=== PATIENT | female | born 1940 | race African-American/Black ===

== ENCOUNTER → 2017-05-24 | Day surgery (SDC) | payer OTHER ==
[~2017-05-24] MED LIST: IV RINGERS SOLUTION,LACTATED 1,000 ML IV ONE; LIDOCAINE 2% PF Vial for OR 5 ML VIAL. ONE; PROPOFOL 20 ML IV ONE
== END | disposition home or self-care (01) ==
LOC: SURG 11:49
PROVIDERS: ATTEND Internal Medicine Gastroenterology
DX: K22.2 Esophageal obstruction (principal); K44.9 Diaphragmatic hernia without obstruction or gangrene; K26.9 Duodenal ulcer, unspecified as acute or chronic, without hemorrhage or perforation; E03.9 Hypothyroidism, unspecified; Z98.890 Other specified postprocedural states
CPT/HCPCS: 43239; 43249; J2704; J7120; J2001

== ENCOUNTER → 2017-08-16 | Day surgery (SDC) | payer OTHER ==
[~2017-08-16] MED LIST changes: +ACET500T33 PO; +OMEP40CA5 PO
[2017-08-16 14:20] VITALS: BP 151/81
== END | disposition home or self-care (01) ==
LOC: SURG 10:45
PROVIDERS: ATTEND Internal Medicine Gastroenterology
DX: R13.10 Dysphagia, unspecified (principal); K44.9 Diaphragmatic hernia without obstruction or gangrene
CPT/HCPCS: 43239; 43450; J2704; J7120; 43235; J2001

== ENCOUNTER 2018-08-30 18:19 | Inpatient (IN) | payer OTHER ==
[~2018-08-30] VITALS: Ht 167.6 cm; Wt 82.6 kg
[~2018-08-30 18:19] MED LIST changes: -IV RINGERS SOLUTION,LACTATED 1,000 ML IV ONE; -LIDOCAINE 2% PF Vial for OR 5 ML VIAL. ONE; -PROPOFOL 20 ML IV ONE
[2018-08-30 18:46] VITALS: BP 159/80
[2018-08-30] MEDS ORDERED: traMADol 50 MG TABLET PO PRN (19:30)
[2018-08-30] MEDS ORDERED: IV NORMAL SALINE 50 ML BAG IV SCH (19:30)
[2018-08-30] MEDS ORDERED: ZOLPIDEM 5 MG TABLET. PO PRN ×2 (19:30)
[2018-08-30] MEDS: IV NORMAL SALINE 1,000ML 1,000 ML IV SCH (19:55)
[2018-08-30 20:34] LABS: BASO # 0.1 x10^3/uL (0.0-0.2); BASO % 1 % (0-3); EOS % 0 % (0-3); HEMATOCRIT 37.2 % (36.0-47.0); HEMOGLOBIN 12.2 g/dL (12.0-15.5); LYMPH # 1.4 x10^3/uL (1.0-4.8); LYMPH % 29 % (24-48); MEAN CORPUSCULAR HEMOGLOBIN 29 pg (25-35); MEAN CORPUSCULAR HGB CONC 33 g/dL (31-37); MEAN CORPUSCULAR VOLUME 88 fL (79-100); MONO # 0.5 x10^3/uL (0.0-1.1); MONO % 11 % (0-9); NEUT # 2.7 x10^3uL (1.8-7.7); NEUT % 59 % (31-73); PLATELET COUNT 248 x10^3/uL (140-400); RED BLOOD COUNT 4.24 x10^6/uL (3.50-5.40); RED CELL DISTRIBUTION WIDTH 14.6 % (11.5-14.5); WHITE BLOOD COUNT 4.7 x10^3/uL (4.0-11.0)
[2018-08-30 20:43] LABS: ALBUMIN 3.4 g/dL (3.4-5.0); ALBUMIN/GLOBULIN RATIO 0.8 (1.0-1.7); CALCIUM 9.4 mg/dL (8.5-10.1); CREATININE 1.3 mg/dL (0.6-1.0); GFR 47.7; POTASSIUM 3.6 mmol/L (3.5-5.1); TOTAL BILIRUBIN 1.4 mg/dL (0.2-1.0); TOTAL PROTEIN 7.6 g/dL (6.4-8.2)
[2018-08-30] MEDS: ONDANSETRON ODT 4 MG TAB.RAPDIS PO PRN (20:47)
[2018-08-30] MEDS ORDERED: METO25TA4 (21:43)
[2018-08-30] MEDS ORDERED: APIX5TAB3 (21:43)
[2018-08-30] MEDS ORDERED: ISOS30TA4 (21:43)
[2018-08-30 22:50] VITALS: BP 126/65
[2018-08-31 04:48] VITALS: BP 119/67
[2018-08-31] MEDS: ISOSORBIDE MONONITRATE ER 30 MG TAB.ER.24H PO SCH (08:54)
[2018-08-31] MEDS: ONDANSETRON ODT 4 MG TAB.RAPDIS PO PRN (08:54)
[2018-08-31] MEDS: APIXABAN 5 MG TABLET. PO SCH ×2 (08:54→20:55)
[2018-08-31] MEDS: METOPROLOL TART IMMED RELEASE 25 MG TABLET PO SCH (08:54)
[2018-08-31] MEDS: LACTOBACILLUS RHAMNOSUS GG 1 CAPSULE. PO SCH ×2 (08:54→20:55)
[2018-08-31] MEDS: PANTOPRAZOLE 40 MG TABLET. PO SCH (08:54)
[2018-08-31 11:07] VITALS: BP 101/56
[2018-08-31] MEDS ORDERED: BARIUM SULFATE 0.1% 450 ML SUSP PO ONE (12:30)
[2018-08-31 12:34] LABS: BACTERIA,URINE FEW /HPF (0-FEW); BILIRUBIN,URINE NEG (NEG); CLARITY,URINE HAZY; COLOR,URINE YELLOW; GLUCOSE,URINE NEG (NEG); NITRITE,URINE POS (NEG); SQUAMOUS EPITHELIAL CELL,UR FEW /LPF; UROBILINOGEN,URINE 0.2 mg/dL (0.2 mg/dL); WBC,URINE >40 /HPF (0-4)
--- NOTE | 2018-08-31 15:26 | RAD ---
EXAM: CT ABDOMEN/PELVIS WITHOUT CONTRAST. HISTORY: Right upper quadrant pain. TECHNIQUE: Computed tomography of the abdomen and pelvis was performed without intravenous contrast. COMPARISON: None. FINDINGS: Lung windows through the visualized portions of the bases reveal trace bilateral pleural effusions and associated atelectasis. There is a moderate hiatal hernia. Bone windows reveal no suspicious lesions. The gallbladder is surgically absent. The liver, spleen, adrenal glands, pancreas and pancreas are unremarkable without contrast. Mild right hydroureter and periureteral stranding are suspected. There are no renal or ureteral calculi. There are no pathologically enlarged lymph nodes. Left colonic diverticulosis is mild. The appendix is not inflamed. There is no small bowel obstruction. The left colon is decompressed but there is suggestion of mild wall thickening. IMPRESSION: 1. Mild right hydroureter and periureteral stranding. Correlate with urinalysis to exclude ascending infection or recent passage of a stone. 2. Mild left colonic wall thickening may reflect only luminal decompression. Correlate to exclude colitis. 3. Moderate hiatal hernia. 4. Trace bilateral pleural effusions. *One or more of the following individualized dose reduction techniques were utilized for this examination: 1. Automated exposure control. 2. Adjustment of the mA and/or kV according to patient size. 3. Use of iterative reconstruction technique. Electronically signed by: Shabbir Ledezma MD (08/31/2018 3:23 PM) [facility] [place]
[2018-08-31 15:43] VITALS: BP 114/66
[2018-08-31] MEDS: IV NORMAL SALINE 1,000ML 1,000 ML IV SCH (16:00)
[2018-08-31 19:10] VITALS: BP 116/82
--- NOTE | 2018-08-31 22:34 | PN ---
DATE: SUBJECTIVE: The patient admitted with pyelonephritis, had temperature of 102.9, elevated pulse. The patient has been treated as an outpatient and failed all that. She is feeling better this morning. She is receiving IV antibiotic therapy. PHYSICAL EXAMINATION: VITAL SIGNS: The patient's temperature down to 99.1, respiratory rate 20, blood pressure 120/70, 86. HEENT: The patient's head was atraumatic, normocephalic. Eyes: PERRLA without jaundice. Mouth and throat were normal. NECK: Supple, no JVD or thyromegaly. LUNGS: Diminished, but clear. ABDOMEN: Soft, diffuse tenderness in the abdomen. May go ahead and get her CT abdomen and pelvis, as she is having pain in her right flank area. Otherwise, she continues to make good progress and we will continue to monitor her accordingly. Continue on IV antibiotic. She is on Eliquis. IMPRESSION: Pyelonephritis abdominal pain. Continue as such. LALO FIGUEROA MD DR: SHARA/dimitri JOB#: [id number] / [id number]
[2018-08-31 22:52] VITALS: BP 111/60
[2018-09-01 00:08] LABS: HEMOGLOBIN A1C 5.2 % (4.8-5.6)
[2018-09-01 05:05] VITALS: BP 142/74
[2018-09-01] MEDS: PANTOPRAZOLE 40 MG TABLET. PO SCH (09:28)
[2018-09-01] MEDS: ISOSORBIDE MONONITRATE ER 30 MG TAB.ER.24H PO SCH (09:29)
[2018-09-01] MEDS: LACTOBACILLUS RHAMNOSUS GG 1 CAPSULE. PO SCH ×2 (09:29→21:40)
[2018-09-01] MEDS: APIXABAN 5 MG TABLET. PO SCH ×2 (09:29→21:40)
[2018-09-01] MEDS: METOPROLOL TART IMMED RELEASE 25 MG TABLET PO SCH (09:30)
[2018-09-01 11:05] VITALS: BP 129/63
[2018-09-01] MEDS ORDERED: BISACODYL 10 MG SUPP.RECT PR ONE (16:15)
--- NOTE | 2018-09-01 17:15 | PN ---
DATE: SUBJECTIVE: The patient with pyelonephritis and colitis. She is doing somewhat better, still receiving IV antibiotic therapy; however, the patient is still having some abdominal pain, but markedly improved from where she was. OBJECTIVE: VITAL SIGNS: Blood pressure 130/60, respiratory rate 20, pulse 60, afebrile. GENERAL: The patient is alert and oriented. LUNGS: Diminished, but clear. CARDIOVASCULAR: Stable. The patient is still complaining of right flank pain. CT scan shows some type of abnormality there. In any case, the patient's blood sugar slightly elevated at 163. She continues to be monitored carefully. She had greater than 40 white blood cells per high powered field and urine cultures are still pending. The patient continues to make good progress. IMPRESSION: Pyelonephritis of the right kidney as well as that of colitis of the colon. LALO FIGUEROA MD DR: SHARA/dimitri JOB#: [id number] / [id number]
[2018-09-01] MEDS ORDERED: NITROGLYCERIN SUBLINGUAL 0.4 MG BOTTLE OF 25. SL PRN (18:45)
[2018-09-01] MEDS: IPRATRPIUM/ALBUTEROL 0.5/2.5MG 3 ML NEBU. NEB PRN (19:22)
[2018-09-01 20:09] VITALS: BP 153/71
[2018-09-01 23:23] VITALS: BP 129/70
[2018-09-02] MEDS: DOCUSATE SODIUM 100 MG CAPSULE PO PRN ×2 (01:00→20:47)
[2018-09-02] MEDS ORDERED: BISACODYL 10 MG/30 ML ENEMA PR PRN (01:30)
[2018-09-02] MEDS ORDERED: SODIUM PHOSPHATES 19/7GM 133 ML ENEMA. PR ONE (03:00)
[2018-09-02] MEDS: IPRATRPIUM/ALBUTEROL 0.5/2.5MG 3 ML NEBU. NEB PRN (06:03)
[2018-09-02 06:25] VITALS: BP 148/78
[2018-09-02] MEDS: ISOSORBIDE MONONITRATE ER 30 MG TAB.ER.24H PO SCH (09:05)
[2018-09-02] MEDS: APIXABAN 5 MG TABLET. PO SCH ×2 (09:05→20:48)
[2018-09-02] MEDS: LACTOBACILLUS RHAMNOSUS GG 1 CAPSULE. PO SCH ×2 (09:05→20:47)
[2018-09-02] MEDS: PANTOPRAZOLE 40 MG TABLET. PO SCH (09:06)
[2018-09-02] MEDS: METOPROLOL TART IMMED RELEASE 25 MG TABLET PO SCH (09:06)
[2018-09-02 10:18] VITALS: BP 164/75
[2018-09-02 14:27] VITALS: BP 128/71
[2018-09-02 19:50] VITALS: BP 145/69
--- NOTE | 2018-09-03 03:26 | PN ---
DATE: 09/02/2018 SUBJECTIVE: The patient was admitted with pyelonephritis and colitis. The patient is resting fairly comfortably, making fairly good progress. The patient otherwise continues to receive IV antibiotic therapy. Waiting for culture and sensitivity reports back from [place] where she had been initially seen. PHYSICAL EXAMINATION: VITAL SIGNS: Blood pressure 128/70, respiratory rate 22. Slight temperature of 99.1. GENERAL: The patient is alert and oriented. LUNGS: Diminished. CARDIOVASCULAR: Regular sinus rhythm. ABDOMEN: Soft, nontender. EXTREMITIES: No clubbing, cyanosis or edema. NEUROLOGIC: Intact, baseline for her. IMPRESSION: Pyelonephritis of the right kidney as well as colitis of the colon. LALO FIGUEROA MD DR: SHARA/nts JOB#: [id number] / [id number]
[2018-09-03 05:33] VITALS: BP 169/87
[2018-09-03] MEDS: ONDANSETRON ODT 4 MG TAB.RAPDIS PO PRN (06:31)
[2018-09-03] MEDS: APIXABAN 5 MG TABLET. PO SCH ×2 (09:01→21:39)
[2018-09-03] MEDS: DOCUSATE SODIUM 100 MG CAPSULE PO PRN (09:02)
[2018-09-03] MEDS: ISOSORBIDE MONONITRATE ER 30 MG TAB.ER.24H PO SCH (09:02)
[2018-09-03] MEDS: PANTOPRAZOLE 40 MG TABLET. PO SCH (09:03)
[2018-09-03] MEDS: LACTOBACILLUS RHAMNOSUS GG 1 CAPSULE. PO SCH ×2 (09:03→21:39)
[2018-09-03] MEDS: METOPROLOL TART IMMED RELEASE 25 MG TABLET PO SCH (09:03)
[2018-09-03 10:54] VITALS: BP 137/77
[2018-09-03 14:45] VITALS: BP 119/72
--- NOTE | 2018-09-03 18:23 | PN ---
DATE: 09/03/2018 SUBJECTIVE: The patient in with sepsis, pyelonephritis, colitis. The patient is still receiving IV antibiotic therapy. She is feeling somewhat better, little bit stronger. Continue with PT, OT. OBJECTIVE: VITAL SIGNS: Blood pressure 169/87, respiratory rate 20, pulse 60, afebrile. GENERAL: The patient is alert and oriented. LUNGS: Diminished, primarily in the right lower lobe. CARDIOVASCULAR: Regular sinus rhythm. ABDOMEN: Soft, tenderness in that left lower quadrant as well as in the right upper quadrant. PLAN: Otherwise, continue on present drug regimen. She is also receiving breathing treatments. The patient continues to be monitored and will continue with IV antibiotic therapy, hopefully ready for discharge in the a.m. IMPRESSION: Pyelonephritis, colitis, lightheaded, dizziness, hyponatremia, chronic kidney disease, sepsis. LALO FIGUEROA MD DR: SHARA/dimitri JOB#: [id number] / [id number]
[2018-09-03 19:42] VITALS: BP 107/64
[2018-09-04 01:04] VITALS: BP 116/74
[2018-09-04 05:15] VITALS: BP 100/63
[2018-09-04] MEDS: METOPROLOL TART IMMED RELEASE 25 MG TABLET PO SCH (09:11)
[2018-09-04] MEDS: LACTOBACILLUS RHAMNOSUS GG 1 CAPSULE. PO SCH (09:11)
[2018-09-04] MEDS: APIXABAN 5 MG TABLET. PO SCH (09:11)
[2018-09-04] MEDS: PANTOPRAZOLE 40 MG TABLET. PO SCH (09:11)
[2018-09-04] MEDS: ONDANSETRON ODT 4 MG TAB.RAPDIS PO PRN (09:11)
[2018-09-04] MEDS: ISOSORBIDE MONONITRATE ER 30 MG TAB.ER.24H PO SCH (09:12)
[2018-09-04 10:46] VITALS: BP 147/76
[2018-09-04] MEDS ORDERED: LACT1CAP19 PO (10:48)
[2018-09-04] MEDS ORDERED: DOCU-109 PO (10:48)
[2018-09-04] MEDS ORDERED: ONDA4TAB12 PO (10:48)
[2018-09-04] MEDS ORDERED: FLUC100T2 PO (10:48)
[2018-09-04] MEDS ORDERED: CEPH500C PO (10:48)
[2018-09-04 12:14] LABS: BILIRUBIN,URINE NEG (NEG); CLARITY,URINE CLEAR; COLOR,URINE YELLOW; GLUCOSE,URINE NEG (NEG)
[2018-09-04 12:15] LABS: BACTERIA,URINE 0 /HPF (0-FEW); NITRITE,URINE NEG (NEG); RBC,URINE RARE /HPF (0-2); SQUAMOUS EPITHELIAL CELL,UR OCC /LPF; UROBILINOGEN,URINE 0.2 mg/dL (0.2 mg/dL)
--- NOTE | 2018-09-04 16:18 | DS ---
DATE OF DISCHARGE: 09/04/2018 HOSPITAL COURSE: 1The patient is an 78-year-old female who comes to be treated as an outpatient. She has been in the ER twice, came back in with right flank pain as well as left lower quadrant pain. The patient's CT showed pyelonephritis and colitis at the same time. The patient was admitted, placed on IV antibiotic therapy including Rocephin and Levaquin. She made relatively good progress during the rest of her hospitalization. She was discharged home. The patient had been before she got her urine started on IV antibiotic therapy. In any case, she made excellent progress during the rest of her hospitalization. There were no complications and the patient will be discharged home. Follow up as an outpatient. IMPRESSION: Pyelonephritis of the right kidney and colitis, infectious, type 2 diabetes. PLAN: As above. Continue to monitor the patient as an outpatient, make further evaluation on her as indicated. See MRAD. Decreased activity. Diabetic diet. LALO FIGUEROA MD DR: SHARA/dimitri JOB#: [id number] / [id number]
[2018-09-04] MEDS ORDERED: CEFDINIR 300 MG CAPSULE PO SCH (21:00)
[2018-09-04] MEDS ORDERED: levoFLOXacin 750 MG TABLET PO SCH (21:00)
--- NOTE | 2018-09-23 11:14 | EKG ---
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
== END 2018-09-04 15:14 | disposition home health service (06) | DRG 872 ==
LOC: 1 SOUTH 18:19
PROVIDERS: ADMIT Family Medicine; ATTEND Family Medicine
DX: A41.9 Sepsis, unspecified organism (principal); N12 Tubulo-interstitial nephritis, not specified as acute or chronic; E87.1 Hypo-osmolality and hyponatremia; A09 Infectious gastroenteritis and colitis, unspecified; N18.9 Chronic kidney disease, unspecified; E11.22 Type 2 diabetes mellitus with diabetic chronic kidney disease
CPT/HCPCS: 36415; 74176; 80053; 81001; 82550; 83036; 83605; 84484; 85025; 87040; 87086; 93005; 94640; J0696; J1956; J7620; Q0162; 97110; 97116; 97530; 97535; J7030

== ENCOUNTER → 2018-10-01 | Outpatient (CLI) | payer OTHER ==
[2018-09-04 10:46] VITALS: BP 147/76
[~2018-10-01] MED LIST changes: +APIX5TAB3; +CEPH500C PO; +DOCU-109 PO; +FLUC100T2 PO; +IOHEXOL 300 MG/ML 75 ML VIAL. IV ONE; +ISOS30TA4; +LACT1CAP19 PO; +METO25TA4; +ONDA4TAB12 PO
--- NOTE | 2018-10-01 13:13 | RAD ---
Examination: CT of the abdomen pelvis with IV contrast HISTORY: History of urinary tract infection. COMPARISON: 08/31/2018 TECHNIQUE: Axial CT images of the abdomen pelvis were performed with IV contrast. Coronal and sagittal reformatted performed Exposure: One or more of the following individualized dose reduction techniques were utilized for this examination: 1. Automated exposure control 2. Adjustment of the mA and/or kV according to patient size 3. Use of iterative reconstruction technique FINDINGS: Mild left lung base airspace opacity. No evidence of free air identified in the abdomen. The visualized noncontrasted liver, spleen, adrenals grossly appears unremarkable. Cholecystectomy clips. Small hiatal hernia. The visualized pancreas grossly appears unremarkable. The small bowel is nondilated. Feces and gas noted in the colon. Few sigmoid colon diverticulosis. The urinary bladder is mildly distended. Minimal prominent right renal pelvis/minimal hydronephrosis similar to prior exam. Moderate aortic atherosclerosis. Moderate degenerative changes lumbar spine. IMPRESSION: 1. Mild prominent right renal pelvis or minimal right-sided hydronephrosis similar to prior exam. 2. Cholecystectomy changes. 2. Sigmoid colon diverticulosis. Electronically signed by: Lei Jha MD (10/01/2018 1:10 PM) [facility]
== END | disposition home or self-care (01) ==
LOC: CT 11:06
PROVIDERS: ATTEND Family Medicine
DX: K57.30 Diverticulosis of large intestine without perforation or abscess without bleeding (principal); N13.30 Unspecified hydronephrosis; I70.0 Atherosclerosis of aorta; K44.9 Diaphragmatic hernia without obstruction or gangrene; N32.89 Other specified disorders of bladder; N39.0 Urinary tract infection, site not specified; Z90.49 Acquired absence of other specified parts of digestive tract
CPT/HCPCS: 74177; Q9967

== ENCOUNTER 2019-03-04 14:06 | Emergency (ER) | payer OTHER ==
[~2019-03-04] VITALS: Ht 167.6 cm; Wt 84.5 kg
[~2019-03-04 14:06] MED LIST changes: -IOHEXOL 300 MG/ML 75 ML VIAL. IV ONE
--- NOTE | 2019-03-04 14:50 | PHYS DOC ---
Adult General Chief Complaint Chief Complaint: MECHANICAL FALL HPI HPI 78-year-old female presents to the emergency department after seeing her primary care physician. Patient had a syncopal episode last night she states she's had approximately 3. Last night she was walking down the [place] from the kitchen and subsequently found herself on the floor. Unknown exactly what happened. Similar she hit her head, there is obvious loss of consciousness. She has had some intermittent nausea, she complains of right sided chest pain secondary to the fall. Unknown if she hit her head, she is on blood thinning medications. Denies any neck pain. She is partly being followed at [facility] and has an implantable device following concern for underlying bradycardia. However, patient states device was not hooked up last night. UnKnown plan per cardiology for the patient. She currently has right-sided chest wall pain secondary to fall, denies any nausea, vomiting, shortness of breath. (BEBO MORFIN MD) Review of Systems Review of Systems Constitutional: Denies fever or chills [] Respiratory: Denies cough or shortness of breath [] Cardiovascular: No additional information not addressed in HPI [] GI: Denies abdominal pain, vomiting, bloody stools or diarrhea []she has had some nausea overnight and currently : Denies dysuria or hematuria [] Musculoskeletal: Denies back pain or joint pain [] Neurologic: Denies headache, focal weakness or sensory changes [] All other systems were reviewed and found to be within normal limits, except as documented in this note. (BEBO MORFIN MD) Allergies Allergies Allergies Coded Allergies Type Severity Reaction Last Updated Verified Sulfa (Sulfonamide Antibiotics) Allergy Intermediate 08/16/17 Yes iodine Allergy Intermediate 09/02/18 Yes (BEBO MORFIN MD) Physical Exam Physical Exam Constitutional: Well developed, well nourished, no acute distress, non-toxic appearance. [] HENT: Normocephalic, atraumatic, bilateral external ears normal, oropharynx moist, no oral exudates, nose normal. [] Eyes: PERRLA, EOMI, conjunctiva normal, no discharge. [] Neck: Normal range of motion, no tenderness, supple, no stridor. [] Cardiovascular:Heart rate regular rhythm, no murmur []tenderness appreciated to right chest wall, no significant bruising appreciated Lungs & Thorax: Bilateral breath sounds clear to auscultation [] Abdomen: Bowel sounds normal, soft, no tenderness, no masses, no pulsatile masses. [] Skin: Warm, dry, no erythema, no rash. [] Back: No tenderness, no CVA tenderness. [] Extremities: No tenderness, no cyanosis, no clubbing, ROM intact, no edema. [] Neurologic: Alert and oriented X 3, no focal deficits noted. [] (BEBO MORFIN MD) Current Patient Data Vital Signs Blood Pressure Assessment Label 158/58 * Mean 91 Blood Pressure Systolic * 158 mm Hg (100-140) H Blood Pressure Diastolic * 58 mm Hg (60-100) L Pulse Rate * 55 beats per minute (60-90) L Respiratory Rate * 16 breaths per minute (12-24) Oxygen Delivery Method * Room Air Bedside Pulse Oximetry * 99 % Lab Results Laboratory Tests Test 03/04/19 16:50 White Blood Count 4.8 x10^3/uL Red Blood Count 3.68 x10^6/uL Hemoglobin 10.7 g/dL Hematocrit 33.5 % Mean Corpuscular Volume 91 fL Mean Corpuscular Hemoglobin 29 pg Mean Corpuscular Hemoglobin Concent 32 g/dL Red Cell Distribution Width 14.5 % Platelet Count 250 x10^3/uL Neutrophils (%) (Auto) 38 % Lymphocytes (%) (Auto) 48 % Monocytes (%) (Auto) 11 % Eosinophils (%) (Auto) 3 % Basophils (%) (Auto) 1 % Neutrophils # (Auto) 1.8 x10^3uL Lymphocytes # (Auto) 2.3 x10^3/uL Monocytes # (Auto) 0.5 x10^3/uL Eosinophils # (Auto) 0.1 x10^3/uL Basophils # (Auto) 0.0 x10^3/uL D-Dimer (Edwina) 0.64 mg/L Sodium Level 142 mmol/L Potassium Level 3.9 mmol/L Chloride Level 106 mmol/L Carbon Dioxide Level 27 mmol/L Anion Gap 9 Blood Urea Nitrogen 16 mg/dL Creatinine 1.0 mg/dL Estimated GFR (Cockcroft-Gault) 64.6 Glucose Level 81 mg/dL Calcium Level 9.3 mg/dL Troponin I Quantitative < 0.017 ng/mL (BEBO MORFIN MD) EKG EKG EKG reviewed and compared to previous EKG from September 01. EKG reveals normal axis, she has right bundle branch block appreciated with some T-wave inversion appreciated anteriorly superior present on comparison.[] EKG time 1429 (BEBO MORFIN MD) Radiology/Procedures Radiology/Procedures [address] [address] IMAGING REPORT Signed PATIENT: NIC CHAPMAN ACCOUNT: [id number] : 1940 LOCATION: ER AGE: 78 SEX: F EXAM STATUS: REG ER ORD. PHYSICIAN: BEBO MORFIN MD REASON: syncope fall injury to right chest PROCEDURE: PORTABLE CHEST 1V Single view of the chest. 03/04/2019 2:37 PM Indication: Fall, chest injury Comparison: None Findings: There is no focal consolidation. There is no pleural effusion or pneumothorax. The cardiomediastinal silhouette and pulmonary vasculature are within normal limits. No acute osseous abnormalities are seen. Impression: No evidence of acute cardiopulmonary process. Electronically signed by: Bill Aranda MD (03/04/2019 4:17 PM) [id number] DICTATED AND SIGNED BY: BILL ARANDA MD DATE: 03/04/191616 CC: BEBO MORFIN MD; LALO FIGUEROA MD ~ [address] [address] IMAGING REPORT Signed PATIENT: NIC CHAPMAN ACCOUNT: [id number] : 1940 LOCATION: ER AGE: 78 SEX: F EXAM STATUS: REG ER ORD. PHYSICIAN: BEBO MORFIN MD REASON: syncope, blood thinner medication unknown LOC PROCEDURE: CT HEAD WO CONTRAST CT Head without contrast 03/04/2019 2:37 PM Indication: Syncope Comparison: None Findings: No intracranial hemorrhage is seen. No evidence of acute territorial infarct is seen. Note that CT is limited in sensitivity for acute ischemia. Senescent atrophic changes are noted. There is prominent patchy periventricular and deep white matter hypoattenuation which is nonspecific, but most commonly relates to chronic small vessel disease. No abnormal extra axial fluid collection is identified. No mass effect or midline shift is seen. No acute osseous abnormalities are seen. Impression: 1. No acute intracranial process identified 2. Age-related atrophy, and evidence of chronic small vessel disease as described CT DOSING PQRS STATEMENT: One or more of the following individualized dose reduction techniques were utilized for this examination: 1. Automated exposure control 2. Adjustment of the mA and/or kV according to patient size 3. Use of iterative reconstruction technique Electronically signed by: Bill Aranda MD (03/04/2019 3:34 PM) [facility] DICTATED AND SIGNED BY: BILL ARANDA MD DATE: 03/04/19 1534 CC: BEBO MORFIN MD; LALO FIGUEROA MD ~ (BEBO MORFIN MD) Course & Med Decision Making Course & Med Decision Making Pertinent Labs and Imaging studies reviewed. (See chart for details) 78-year-old female presents to the emergency department after seeing her primary care physician. Patient had a syncopal episode last night she states she's had approximately 3. Last night she was walking down the [place] from the kitchen and subsequently found herself on the floor. Unknown exactly what happened. Similar she hit her head, there is obvious loss of consciousness. She has had some intermittent nausea, she complains of right sided chest pain secondary to the fall. Unknown if she hit her head, she is on blood thinning medications. Denies any neck pain. She is partly being followed at [facility] and has an implantable device following concern for underlying bradycardia. However, patient states device was not hooked up last night. UnKnown plan per cardiology for the patient. She currently has right-sided chest wall pain secondary to fall, denies any nausea, vomiting, shortness of breath. Labs/Imaging reviewed, discussed with PCP - agrees with assessment and plan for transfer to [facility]. Care turned over to DR. PRASAD awaiting acceptance of Hospitalist. (BEBO MORFIN MD) Course & Med Decision Making Patient's care was received from Dr. Duque at 6:30 PM. At the time of his departure, he was awaiting callback from referring physician. Dr. Rodriguez will accept patient in transfer to [facility]. (CONI PRASAD Jr. DO) Dragon Disclaimer Dragon Disclaimer This electronic medical record was generated, in whole or in part, using a voice recognition dictation system. (BEBO MORFIN MD) Departure Departure: Impression: Primary Impression: Recurrent syncope Additional Impression: Right-sided chest wall pain Disposition: XFER SHT-TRM HOSP Condition: GOOD Referrals: LALO FIGUEROA MD (PCP) Problem Qualifiers BEBO MORFIN MD Mar 04, 2019 14:50 CONI PRASAD Jr. DO Mar 04, 2019 18:46
--- NOTE | 2019-03-04 15:37 | RAD ---
CT Head without contrast 03/04/2019 2:37 PM Indication: Syncope Comparison: None Findings: No intracranial hemorrhage is seen. No evidence of acute territorial infarct is seen. Note that CT is limited in sensitivity for acute ischemia. Senescent atrophic changes are noted. There is prominent patchy periventricular and deep white matter hypoattenuation which is nonspecific, but most commonly relates to chronic small vessel disease. No abnormal extra axial fluid collection is identified. No mass effect or midline shift is seen. No acute osseous abnormalities are seen. Impression: 1. No acute intracranial process identified 2. Age-related atrophy, and evidence of chronic small vessel disease as described CT DOSING PQRS STATEMENT: One or more of the following individualized dose reduction techniques were utilized for this examination: 1. Automated exposure control 2. Adjustment of the mA and/or kV according to patient size 3. Use of iterative reconstruction technique Electronically signed by: Bill Hernandez MD (03/04/2019 3:34 PM) [id number]
--- NOTE | 2019-03-04 16:20 | RAD ---
Single view of the chest. 03/04/2019 2:37 PM Indication: Fall, chest injury Comparison: None Findings: There is no focal consolidation. There is no pleural effusion or pneumothorax. The cardiomediastinal silhouette and pulmonary vasculature are within normal limits. No acute osseous abnormalities are seen. Impression: No evidence of acute cardiopulmonary process. Electronically signed by: Bill Hernandez MD (03/04/2019 4:17 PM) [facility]
--- NOTE | 2019-03-04 17:10 | EKG ---
[address] [address] Test Date: 2019-03-04 Test Time: 14:29:03 Pat Name: NIC CHAPMAN Department: Room: Gender: F [employer] Supervisor: BIJAL : 1940 Requested By: BEBO MORFIN Order Number: [id number] Reading MD: Measurements Intervals [place] Rate: 63 P: 90 PA: 184 QRS: -16 QRSD: 126 T: 29 QT: 464 QTc: 478 Interpretive Statements SINUS RHYTHM ATRIAL PREMATURE COMPLEX(ES) LEFTWARD AXIS RIGHT BUNDLE BRANCH BLOCK QRS(T) CONTOUR ABNORMALITY CONSIDER ANTEROSEPTAL MYOCARDIAL DAMAGE ABNORMAL ECG RI6.01 No previous ECG available for comparison
[2019-03-04 17:18] LABS: BASO % 1 % (0-3); EOS # 0.1 x10^3/uL (0.0-0.7); EOS % 3 % (0-3); HEMATOCRIT 33.5 % (36.0-47.0); HEMOGLOBIN 10.7 g/dL (12.0-15.5); LYMPH # 2.3 x10^3/uL (1.0-4.8); LYMPH % 48 % (24-48); MEAN CORPUSCULAR HEMOGLOBIN 29 pg (25-35); MEAN CORPUSCULAR HGB CONC 32 g/dL (31-37); MEAN CORPUSCULAR VOLUME 91 fL (79-100); MONO # 0.5 x10^3/uL (0.0-1.1); MONO % 11 % (0-9); NEUT # 1.8 x10^3uL (1.8-7.7); NEUT % 38 % (31-73); PLATELET COUNT 250 x10^3/uL (140-400); RED BLOOD COUNT 3.68 x10^6/uL (3.50-5.40); RED CELL DISTRIBUTION WIDTH 14.5 % (11.5-14.5); WHITE BLOOD COUNT 4.8 x10^3/uL (4.0-11.0)
[2019-03-04 17:26] LABS: CALCIUM 9.3 mg/dL (8.5-10.1); GFR 64.6; POTASSIUM 3.9 mmol/L (3.5-5.1)
[2019-03-04 22:10] VITALS: BP 101/59
== END 2019-03-04 22:28 | disposition short-term general hospital (02) ==
LOC: ER 14:06
DX: R55 Syncope and collapse (principal); R07.89 Other chest pain; Z88.2 Allergy status to sulfonamides; Z88.8 Allergy status to other drugs, medicaments and biological substances; W18.39XA Other fall on same level, initial encounter; Y93.01 Activity, walking, marching and hiking; Y92.098 Other place in other non-institutional residence as the place of occurrence of the external cause; Y99.8 Other external cause status
CPT/HCPCS: 36415; 70450; 71045; 80048; 84484; 85025; 85379; 93005; 99285

== ENCOUNTER → 2020-04-29 | Outpatient (CLI) | payer MEDICARE, OTHER ==
[~2020-04-29] MED LIST changes: +OMEP40CA45 PO; -OMEP40CA5 PO
--- NOTE | 2020-04-29 11:58 | RAD ---
EXAM: Pelvis CT without contrast. HISTORY: Left lower extremity swelling. Incontinence. TECHNIQUE: Computed tomographic images of the pelvis were obtained without contrast. *One or more of the following individualized dose reduction techniques were utilized for this examination: 1. Automated exposure control. 2. Adjustment of the mA and/or kV according to patient size. 3. Use of iterative reconstruction technique. COMPARISON: 10/01/2018. FINDINGS: There is no evidence of bowel obstruction. There are nonspecific fluid-filled loops of small large bowel. There is distal colonic diverticulosis. There is no convincing diverticulitis. The urinary bladder is unremarkable. There are uterine vascular calcifications. No uterine mass or adnexal mass is seen. The aorta is normal in caliber. There is calcified atherosclerotic plaque involving the aorta and iliac bifurcation. Evaluation for stenosis is limited in the absence of contrast. There are few hepatic granulomas. The majority of the liver is excluded from the [id number]-wpft. There is no lymphadenopathy. There is grade 1 anterolisthesis of L4 and L5 and L5 on S1 and slight retrolisthesis of and L3 on L4. There is left greater than right facet arthropathy predominantly at the lumbosacral junction. There are disc bulges at the lower lumbar levels. The comminution of these findings results in moderate bilateral foraminal and central canal stenosis at L3-L4, mild right and moderate left foraminal and mild central canal stenosis at L4-L5 and mild to moderate right and severe left foraminal stenosis at L5-S1. IMPRESSION: 1. No findings correlate with reported left lower extremity swelling and incontinence. 2. Colonic diverticulosis. 3. 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 4. Aortic and aortic branch vessel atherosclerosis. Electronically signed by: Sarina Todd MD (04/29/2020 11:56 AM) [id number]
== END ==
LOC: CT 10:58
PROVIDERS: ATTEND Family Medicine
DX: K57.30 Diverticulosis of large intestine without perforation or abscess without bleeding (principal); R19.04 Left lower quadrant abdominal swelling, mass and lump; N85.8 Other specified noninflammatory disorders of uterus; I70.0 Atherosclerosis of aorta; M43.17 Spondylolisthesis, lumbosacral region; M47.817 Spondylosis without myelopathy or radiculopathy, lumbosacral region; M48.07 Spinal stenosis, lumbosacral region
CPT/HCPCS: 72192